=== PATIENT | male | born 1940 | race Caucasian/White ===

== ENCOUNTER 2018-05-29 13:05 | Observation (INO) | payer OTHER ==
[~2018-05-29] VITALS: Ht 165.1 cm; Wt 72.6 kg
[2018-05-29 13:11] VITALS: Ht 165.1 cm; Wt 72.6 kg
[2018-05-29 14:31] LABS: RED CELL DISTRIBUTION WIDTH 14.4 % (11.5-14.5)
[2018-05-29 14:35] LABS: BASOPHIL % 0 % (0-2); PLATELET COUNT 117 x10^3mcL (130-400)
[2018-05-29 14:37] LABS: CALCIUM 9.7 mg/dL (8.5-10.1); CHLORIDE SERUM 103 mmol/L (98-107); GLUCOSE SERUM 132 mg/dL (74-106); POTASSIUM SERUM 4.1 mmol/L (3.5-5.1); SODIUM SERUM 142 mmol/L (136-145)
[2018-05-29 14:49] LABS: ALBUMIN 3.7 g/dL (3.4-5.0); ALKALINE PHOSPHATASE 418 U/L (46-116); ALT/SGPT 68 U/L (16-63); AMYLASE 48 U/L (25-115); AST/SGOT 70 U/L (15-37); BILIRUBIN TOTAL 2.5 mg/dL (0.20-1.00); LIPASE 102 IU/L (73-393); MAGNESIUM 2.4 mg/dL (1.8-2.4); T4(THYROXINE) 9.1 ug/dL (4.7-13.3); TOTAL PROTEIN, SERUM 7.2 g/dL (6.4-8.2)
[2018-05-29 14:51] LABS: CHOLESTEROL 111 mg/dL (<200); HDL CHOLESTEROL 16 mg/dL (40-60)
[2018-05-29] MEDS ORDERED: KRISTALOSE10 GM/Pack (16:04)
[2018-05-29] MEDS ORDERED: ALDACTONE25 MG (16:05)
[2018-05-29] MEDS ORDERED: TAMSULOSIN HYD0.4 M1 (16:05)
[2018-05-29] MEDS ORDERED: PROTONIX20 MG (16:05)
[2018-05-29 16:40] VITALS: BP 132/68
[2018-05-29 16:48] VITALS: BP 132/68
[2018-05-29 20:33] VITALS: BP 119/50
[2018-05-30 05:34] VITALS: BP 129/73
[2018-05-30 06:46] LABS: ALBUMIN 3.5 g/dL (3.4-5.0); ALKALINE PHOSPHATASE 347 U/L (46-116); ALT/SGPT 61 U/L (16-63); AST/SGOT 46 U/L (15-37); BILIRUBIN TOTAL 2.4 mg/dL (0.20-1.00); CALCIUM 9.8 mg/dL (8.5-10.1); CARBON DIOXIDE 30.5 mmol/L (21-32); CHLORIDE SERUM 102 mmol/L (98-107); CREATININE SERUM 1.3 mg/dL (0.7-1.3); GLUCOSE SERUM 119 mg/dL (74-106); SODIUM SERUM 144 mmol/L (136-145); TOTAL PROTEIN, SERUM 6.8 g/dL (6.4-8.2)
[2018-05-30 09:03] LABS: PLATELET COUNT 128 x10^3mcL (130-400); RED CELL DISTRIBUTION WIDTH 14.6 % (11.5-14.5)
[2018-05-30 09:07] VITALS: BP 101/41
[2018-05-30 12:39] VITALS: BP 131/72
[2018-05-30 13:07] LABS: ATYPICAL LYMPH 4 %; BAND NEUTROPHIL 5 % (0-10); BASOPHIL 0 % (0-2); MONOCYTE 9 % (0-7); SEGMENTED NEUTROPHILS 75 % (37-75)
[2018-05-30 13:08] LABS: PLATELET MORPHOLOGY PLATELETS DECREASED; rbc morphology (normal/abnorm) ABNORMAL (NORMAL)
[2018-05-30 13:48] VITALS: BP 135/70
[2018-05-30 15:28] VITALS: BP 115/67
== END 2018-05-30 17:06 | disposition hospice, home (50) | DRG 841 ==
LOC: ED 13:05 → EDBEDREQ 16:04 → DU 16:04
PROVIDERS: Emergency Medicine; Internal Medicine Pulmonary Disease
DX: C81.90 Hodgkin lymphoma, unspecified, unspecified site (principal); C79.9 Secondary malignant neoplasm of unspecified site; I10 Essential (primary) hypertension; N40.0 Benign prostatic hyperplasia without lower urinary tract symptoms; Z53.29 Procedure and treatment not carried out because of patient's decision for other reasons; Z66 Do not resuscitate
CPT/HCPCS: 82962; G0378; G0480; J1885; J2060; J2405; J2550; J3010; J7030; Q0092; Q9967